=== PATIENT | male | born 1940 | race Caucasian/White ===

== ENCOUNTER → 2018-11-26 | Outpatient (CLI) | payer OTHER, BC, MEDICARE ==
--- NOTE | 2018-11-26 13:08 | MR ---
EXAMINATION TYPE: MR iac wo/w con DATE OF EXAM: 11/26/2018 COMPARISON: None HISTORY: Left side hearing loss TECHNIQUE: Multiplanar, multisequence images of the brain and brainstem with small [id number] high-resolution images through the internal auditory canals is performed without and with IV contrast, utilizing 7.5 mL intravenous Gadavist . FINDINGS: Diffusion weighted images demonstrate no evidence of a recent infarct or other diffusion ab normality. There is no extra-axial fluid collection. There are scattered periventricular and subcor tical focal hyperintensities on inversion recovery and T2-weighted sequences within the white matter. Approximately 10-15 lesions are present. Correlate fissure cysts are noted incidentally The ventricu lar system and cisternal spaces are normal in size and appearance. The brain volume is age appropria te, there is age-related atrophy. There is no cerebellopontine angle mass, internal auditory canals s how no abnormal enhancement. Midline structures demonstrate normal morphology. The craniocervical junction appears within normal limits. Post contrast images demonstrate no abnormal enhancement. The dural venous sinuses appear pa tent. The visualized sinuses are showing some inflammatory change in the left maxillary sinus, there may be mucus retention cyst and the globes are intact. IMPRESSION: Nonspecific white matter demyelination likely related to chronic small vessel ischemia. A ge-related atrophy. Sinus disease. No abnormality evident in the internal auditory canals.
== END | disposition home or self-care (01) ==
LOC: RADMRIMAIN 09:02
PROVIDERS: ATTEND Otolaryngology
DX: H90.42 Sensorineural hearing loss, unilateral, left ear, with unrestricted hearing on the contralateral side (principal)
CPT/HCPCS: 70553; A9585

== ENCOUNTER → 2018-12-18 | Outpatient (CLI) | payer MEDICARE, BC ==
--- NOTE | 2018-12-18 15:18 | US ---
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 MRI in [place] showed renal cyst EXAM MEASUREMENTS: Right Kidney: 10.6 x 4.9 x 4.9 cm Left Kidney: 10.7 x 3.6 x 3.7 cm Right Kidney: lower pole lateral cystic appearing lesion = 1.3 x 1.2 x 1.2 cm with some increased thr ough transmission and no internal complexity. Left Kidney: No hydronephrosis or masses seen Bladder: wnl, moderately distended Bilateral Jets not seen There is no evidence for hydronephrosis at this point in time. No nephrolithiasis is seen. The urina ry bladder is anechoic. Bilateral ureteral jets are not seen. IMPRESSION: Small right renal cyst measuring 1.3 cm appears simple although somewhat difficult to visualize.
== END ==
LOC: RADUSWWP 14:06
PROVIDERS: ATTEND Internal Medicine Geriatric Medicine
DX: N28.1 Cyst of kidney, acquired (principal)
CPT/HCPCS: 76770

== ENCOUNTER 2021-03-23 15:21 | Inpatient (IN) | payer MEDICARE, BC ==
[2021-03-23] MEDS ORDERED: HEPARIN SODIUM 1,000 UN/ML (10ML VL) IV ONE (15:28)
[2021-03-23] MEDS ORDERED: NITROGLYCERIN SL TABS 0.4 MG TAB SUBLINGUAL PRN (15:28)
[2021-03-23 15:37] LABS: Basophils % (A) 1 %; Eosinophils # (A) 0.1 k/uL (0-0.7); Eosinophils % (A) 2 %; HCT 39.7 % (39.0-53.0); HGB 13.1 gm/dL (13.0-17.5); Lymphocytes # (A) 2.1 k/uL (1.0-4.8); Lymphocytes % (A) 29 %; MCH 32.8 pg (25.0-35.0); MCV 99.2 fL (80.0-100.0); Mean Platelet Volume 7.8; Monocytes # (A) 0.5 k/uL (0-1.0); Monocytes % (A) 7 %; Neutrophils # (A) 4.1 k/uL (1.3-7.7); Neutrophils % (A) 58 %; Platelet Count 199 k/uL (150-450); RDW 12.6 % (11.5-15.5); WBC 7.1 k/uL (3.8-10.6)
[2021-03-23] MEDS ORDERED: NALOXONE 0.4 MG/ML 1 ML VIAL IV PRN (15:39)
[2021-03-23] MEDS ORDERED: SODIUM CHLORIDE 0.9% 1,000 ML IV ONE (15:40)
[2021-03-23] MEDS ORDERED: IV FLUID CONTINUATION 950 ML IV ONE (15:40)
--- NOTE | 2021-03-23 15:44 | XR ---
EXAMINATION TYPE: XR chest 1V portable DATE OF EXAM: 03/23/2021 HISTORY: Shortness of breath. COMPARISON: 11/02/2013 TECHNIQUE: Single view of the chest is submitted. FINDINGS: Demonstrated are scattered senescent parenchymal change. There is no evidence for focal infiltrate. The heart is stable. Hilar and mediastinal structures are within normal limits. Degenerative changes are seen of the dorsal spine. IMPRESSION: 1. Chronic changes without evidence for acute pulmonary disease.
[2021-03-23 15:47] LABS: Albumin 3.5 g/dL (3.5-5.0); Calcium 8.9 mg/dL (8.4-10.2); Partial Thromboplastin Time 24.9 sec (22.0-30.0); Potassium 3.9 mmol/L (3.5-5.1); Prothrombin Time 10.8 sec (9.0-12.0); Total Bilirubin 0.5 mg/dL (0.2-1.3); Total Protein 5.8 g/dL (6.3-8.2)
[2021-03-23] MEDS ORDERED: HEPARIN SODIUM 1,000 UN/ML (10ML VL) ONE (15:48)
[2021-03-23] MEDS ORDERED: LIDOCAINE 1% INJ 10MG/ML (20 ML MDV) SQ ONE ×2 (15:50→16:19)
[2021-03-23] MEDS ORDERED: MIDAZOLAM 2 MG/2 ML VIAL IVP ONE (15:51)
[2021-03-23] MEDS ORDERED: fentaNYL (PF) 50 MCG/ML 2 ML AMP ONE (16:20)
[2021-03-23] MEDS: VERAPAMIL SYRINGE (5 MG/10 ML) INTRAARTER ONE ×2 (16:20→17:16)
[2021-03-23] MEDS ORDERED: fentaNYL (PF) 50 MCG/ML 2 ML AMP IVP ONE (16:22)
[2021-03-23] MEDS ORDERED: IOPAMIDOL-370 125ML BTL INJ ONE (16:32)
[2021-03-23] MEDS: HEPARIN SODIUM 1,000 UN/ML (10ML VL) IVP ONE ×2 (16:45→17:28)
[2021-03-23] MEDS ORDERED: CLOPIDOGREL 75 MG TAB ONE (17:21)
[2021-03-23] MEDS ORDERED: IOPAMIDOL-370 100ML BTL INJ ONE (17:28)
[2021-03-23] MEDS ORDERED: CLOPIDOGREL 75 MG TAB PO ONE (17:28)
[2021-03-23] MEDS ORDERED: TIROFIBAN 12.5MG-250ML NS 250 ML IV ONE (17:30)
[2021-03-23 17:53] LABS: Glucose,Whole Blood 115 mg/dL (75-99)
[2021-03-23] MEDS: HEPARIN SOD,PORK IN 0.45% NACL 25,000 UNIT in 0.45% NACL 1 250ML.BAG IV SCH (18:04)
[2021-03-23] MEDS ORDERED: TIROFIBAN 12.5MG-250ML NS 250 ML IV SCH (18:15)
[2021-03-23] MEDS ORDERED: DOCUSATE 100 MG CAP PO PRN (18:20)
[2021-03-23] MEDS ORDERED: ALPRAZolam 0.25 MG TAB PO PRN (18:22)
[2021-03-23] MEDS: SODIUM CHLORIDE 0.9% 1,000 ML IV SCH (18:53)
--- NOTE | 2021-03-23 20:57 | P.CRDCN ---
History of Present Illness Consult date: 03/23/21 Chief complaint: Chest discomfort History of present illness: This is a pleasant 81-year-old gentleman with coronary artery disease and prior coronary artery bypass grafting as well as ischemic cardiomyopathy with the last ejection fraction about 40-45% as well as chronic kidney disease and hypertension and dyslipidemia was brought to the emergency department by ambulance after he was diagnosed with acute inferior ST elevation myocardial inf arction. He was in his usual state of health until earlier today when he started experiencing discomfort in the middle of the chest associated with shortness of breath. The discomfort was radiating to his back. Ambulance was called and the EKG revealed acute inferior ST elevation myocardial infarction. The patient was brought emergently to the cardiac incident commander where he underwent a heart catheterization and that revealed severe triple-vessel coronary artery disease with chronic total occlusion of the left anterior descending artery and left circumflex as well as right coronary artery and patent CAMARA to LAD and occluded the distal anastomosis of the SVG to dominant left circumflex coronary artery. The patient underwent successful balloon angioplasty of the SVG to left circumflex with a very complex and long procedure because of his anatomy where the proximal anastomosis of the SVG is coming from high short ascending aorta. The procedure was performed from the right groin as well as from right radial artery. I was able to balloon angioplasty the distal anastomosis of the graft to the left circumflex without deploying stent with FEMI III flow and without any complication. By the end the patient was chest pain-free with resolving changes. The patient will be admitted to the intensive care unit. He was started on dual antiplatelet therapy and also I started the patient on Agg rostat. An echocardiogram will be scheduled. He will be on anti-ischemic medication and high intensity statin. Past Medical History Past Medical History: Coronary Artery Disease (CAD), Hyperlipidemia, Hypertension, Myocardial Infarction ([place]) Last Myocardial Infarction Date:: 03/23/2021 History of Any Multi-Drug Resistant Organisms: None Reported Past Surgical History: Coronary Bypass/CABG, Heart Catheterization With Stent Additional Past Surgical History / Comment(s): heart bypass x2 (2001), coronary stent Past Anesthesia/Blood Transfusion Reactions: No Reported Reaction Date of Last Stent Placement:: 11/02/13 Past Psychological History: No Psychological Hx Reported Smoking Status: Former smoker Past Alcohol Use History: Occasional Additional Past Alcohol Use History / Comment(s): Occasional glass of red wine. Past Drug Use History: None Reported Medications and Allergies Home Medications Medication Instructions Recorded Confirmed Type ALPRAZolam [Xanax] 0.25 mg PO HS PRN 11/02/13 03/23/21 History Nitroglycerin Sl Tabs [Nitrostat] 0.4 mg SUBLINGUAL Q5M PRN #25 tab 11/04/13 03/23/21 Rx Ascorbic Acid [Vitamin C] 500 mg PO DAILY 03/23/21 03/23/21 History Aspirin EC [Ecotrin Low Dose] 81 mg PO HS 03/23/21 03/23/21 History Melatonin 5 mg PO HS 03/23/21 03/23/21 History Metoprolol Succinate [Toprol XL] 25 mg PO HS 03/23/21 03/23/21 History Multivitamins, Thera [Multivitamin 1 tab PO DAILY 03/23/21 03/23/21 History (formulary)] Rosuvastatin [Crestor] 10 mg PO FR 03/23/21 03/23/21 History lisinopriL [Zestril] 10 mg PO HS 03/23/21 03/23/21 History Allergies Allergy/AdvReac Type Severity Reaction Status Date / Time No Known Allergies Allergy Verified 11/01/13 23:48 Physical Exam Vitals: Vital Signs Temp Pulse Resp BP Pulse Ox 03/23/21 19:01 96 03/23/21 19:00 51 L 11 L 96 03/23/21 18:50 97.9 F 47 L 16 101/61 95 03/23/21 15:23 97.4 F L 93 20 118/74 97 Intake and Output 03/23/21 03/23/21 03/23/21 06:59 14:59 22:59 Intake Total 953 Output Total 250 Balance 703 Intake: IV 953 Sodium Chloride 0.9% 1, 150 000 ml @ 75 mls/hr IV . [id number] [facility] Rx#:[id number] Output: Urine 250 Other: # Voids 1 Weight 82.8 kg ABP, PAP, CO, CI - Last 8 Hours Arterial Blood Pressure 121/52 Arterial Blood Pressure 118/49 - Constitutional General appearance: no acute distress Results 03/23/21 15:25 03/23/21 15:25 Cardiac Enzymes 03/23/21 03/23/21 Range/Units 15:25 15:25 AST 29 (17-59) U/L Troponin I <0.012 (0.000-0.034) ng/mL Coagulation 03/23/21 Range/Units 15:25 PT 10.8 (9.0-12.0) sec APTT 24.9 (22.0-30.0) sec CBC 03/23/21 Range/Units 15:25 WBC 7.1 (3.8-10.6) k/uL RBC 4.00 L (4.30-5.90) m/uL Hgb 13.1 (13.0-17.5) gm/dL Hct 39.7 (39.0-53.0) % Plt Count 199 (150-450) k/uL Comprehensive Metabolic Panel 03/23/21 Range/Units 15:25 Sodium 131 L (137-145) mmol/L Potassium 3.9 (3.5-5.1) mmol/L Chloride 103 (98-107) mmol/L Carbon Dioxide 21 L (22-30) mmol/L BUN 24 H (9-20) mg/dL Creatinine 1.17 (0.66-1.25) mg/dL Glucose 164 H (74-99) mg/dL Calcium 8.9 (8.4-10.2) mg/dL AST 29 (17-59) U/L ALT 19 (4-49) U/L Alkaline Phosphatase 48 (38-126) U/L Total Protein 5.8 L (6.3-8.2) g/dL Albumin 3.5 (3.5-5.0) g/dL Current Medications Generic Name Dose Route Start Last Admin Trade Name Freq PRN Reason Stop Dose Admin Alprazolam 0.25 mg 03/23/21 18:22 Alprazolam 0.25 Mg Tab PO HS PRN Anxiety Ascorbic Acid 500 mg 03/24/21 09:00 Ascorbic Acid 500 Mg Tab PO DAILY [facility] Clopidogrel Bisulfate 75 mg 03/24/21 09:00 Clopidogrel 75 Mg Tab PO DAILY [facility] Docusate Sodium 100 mg 03/23/21 18:20 Docusate 100 Mg Cap PO DAILY PRN Constipation Heparin Sodium/Sodium Chloride 250 mls @ 10 mls/hr 03/23/21 15:30 03/23/21 18:04 25,000 unit/ Sodium Chloride IV Not Given .Q24H [facility] Protocol 11.683 UNITS/KG/HR Tirofiban/Sodium Chloride 250 mls @ 7.452 mls/hr 03/23/21 18:15 03/23/21 18:54 Aggrastat 12.5 Mg/250 Ml Ns IV 7.452 mls/hr .Q24H [facility] Administration 0.075 MCG/KG/MIN Sodium Chloride 1,000 mls @ 75 mls/hr 03/23/21 18:15 03/23/21 18:53 Saline 0.9% IV 75 mls/hr .[id number] [facility] Administration Lisinopril 10 mg 03/23/21 21:00 Lisinopril 10 Mg Tab PO HS [facility] Melatonin 5 mg 03/23/21 21:00 Melatonin 5 Mg Tablet PO HS [facility] Multivitamins 1 each 03/24/21 09:00 Multivitamins, Thera 1 Each Tab PO DAILY [facility] Naloxone HCl 0.2 mg 03/23/21 15:39 Naloxone 0.4 Mg/Ml 1 Ml Vial IV Q2M PRN Opioid Reversal Intake and Output 03/23/21 03/23/21 03/23/21 06:59 14:59 22:59 Intake Total 953 Output Total 250 Balance 703 Intake: IV 953 Sodium Chloride 0.9% 1, 150 000 ml @ 75 mls/hr IV . [id number] [facility] Rx#:[id number] Output: Urine 250 Other: # Voids 1 Weight 82.8 kg Patient Weight 03/24/21 06:59 Weight 82.8 kg 03/23/21 15:25 03/23/21 15:25 Assessment and Plan Assessment: Assessment 1. Acute inferior ST elevation myocardial infarction 2. Status post PCI of the SVG to LCx 3. Severe triple-vessel coronary artery disease 4. Nonischemic cardiomyopathy 5. Hypertension 6. Severe dyslipidemia Plan 1. Dual antiplatelet therapy 2. Start the patient on IIb/IIIa inhibitor using Aggrostat 3. High intensity statin 4. Anti-ischemic medication 5. Obtain an echocardiogram with Doppler 6. Follow-up with the patient
[2021-03-23] MEDS: MELATONIN 5 MG TABLET PO SCH (22:12)
[2021-03-23] MEDS: lisinopriL 10 MG TAB PO SCH (22:12)
--- NOTE | 2021-03-23 23:20 | CC ---
CARDIAC CATHETERIZATION REPORT DATE OF PROCEDURE: 03/23/2021 PERFORMING PHYSICIAN: Gregg Gonzalez M.D. PROCEDURE PERFORMED: 1. Selective left and right coronary angiogram. 2. CAMARA to LAD angiogram. 3. SVG to left circumflex angiogram. 4. Successful angioplasty of the SVG to the left circumflex using a 2.0 x 12 mm balloon with an excellent angiographic result and reduction of stenosis from 100% to 0%. 5. Right common femoral artery angiogram. INDICATION: Mr. Shaw is a pleasant 81-year-old gentleman with coronary artery disease and prior coronary artery bypass grafting with the last heart catheterization in 2013 that showed severe triple-vessel coronary artery disease with patent CAMARA to LAD, and at that point he underwent PCI of the SVG to left circumflex as well as ischemic cardiomyopathy with known EF between 40% and 45% as well as hypertension and dyslipidemia and chronic kidney disease. He was brought to the hospital by ambulance after he was diagnosed with acute inferior ST-elevation myocardial infarction. APPROACH: 1. Right common femoral artery. 2. Right radial artery. COMPLICATIONS: None. LEVEL OF SEDATION: Moderate, with a sedation length of 66 minutes. PROCEDURE DESCRIPTION: After obtaining informed consent, the patient was brought to the cardiac lab tech. The right common femoral artery was cannulated using micropuncture technique under ultrasound guidance. The micropuncture wire passed easily. Then I placed a 6-American sheath 11 cm at the right common femoral artery. I did selective left coronary angiogram using JL4.5 catheter, which was a diagnostic catheter. Selective right coronary angiogram was performed using the JR4 catheter. CAMARA to LAD angiogram was performed using JR4 catheter. The SVG to left circumflex angiogram was attempted to be cannulated using JR4 catheter and that was unsuccessful. LCB catheter was unsuccessful. An AL1 catheter was unsuccessful. An AL2 catheter was unsuccessful. An EBU catheter was unsuccessful. Multipurpose catheter was unsuccessful. Finally I was able to cannulate that graft and intervene on it using a diagnostic AL1 catheter. Please see separate paragraph for that. Please note that during the procedure and because I had difficulty engaging the graft from the right common femoral artery, I accessed the right radial artery and I placed a 6-American sheath and I attempted engaging the graft, which is the SVG to the circumflex, using the same catheter I used from the groin, and that was unsuccessful. SELECTIVE CORONARY ANGIOGRAM: 1. The left main appeared to be calcified with mild disease only. It bifurcates into LCX and LAD. 2. The LCX is 100% occluded in the proximal portion. 3. The LAD is subtotally occluded in the mid portion with competitive flow seen from the CAMARA. 4. The right coronary artery is chronically occluded in the mid portion. ANGIOGRAM OF CORONARY BYPASSES: 1. The CAMARA to LAD is patent. The LAD distal to the anastomosis has a 50% tubular lesion. 2. The SVG to left circumflex is occluded distally. Also the same graft has an ostial lesion that appeared to be in the range of 50% to 60%. PCI OF THE SVG TO LEFT CIRCUMFLEX: Anticoagulation was initiated and continued using heparin with continuous ACT monitoring throughout the procedure. After attempting to engage the graft using multiple catheters, as described above, finally I was able to engage the graft using an AL1 diagnostic catheter. I did an angiogram of the graft, which showed that the distal portion was occluded. I did wire it using a Whisper wire. Balloon angioplasty was achieved through the diagnostic catheter using a 2.0 x 12 mm balloon with multiple PTCA ballooning. The following angiogram after the plain balloon angioplasty showed excellent angiographic results. At that point and in view of the asymptomatic status, the resulting EKG changes, and the maximal amount of contrast which was almost reached, I decided to stop. The procedure was completed without any complication. CONCLUSION: 1. Severe triple-vessel coronary artery disease. 2. Patent CAMARA to LAD. The LAD distal to CAMARA anastomosis has about 50% tubular lesion. 3. Occluded distal SVG to left circumflex. Balloon angioplasty was performed and was successful without deploying stent. The procedure was extremely complex because of the patient's anatomy. 4. Chronic total occlusion of the right coronary artery which is known from before. POSTPROCEDURE MANAGEMENT: 1. Dual anti-platelet therapy with aspirin as well as clopidogrel. 2. Start the patient on inhibitor with Aggrastat to be continuous for 12 hours. 3. Anti-ischemic medication. 4. High-intensity statin. 5. ICU admission. 6. Standard groin care. MMODL / IJN: [id number] /
--- NOTE | 2021-03-23 23:28 | LTR ---
March 23, 2021 To: Dr. Aden Re: Azalia Shaw (44) Dear Dr. Aden, Mr. Azalia Shaw was brought to the emergency department by ambulance after he was diagnosed with acute inferior ST-elevation myocardial infarction. He underwent successful angioplasty of the SVG to the circumflex with good angiographic results and without any complication from right groin approach and right radial approach. I want to thank you for allowing me to participate in this patient's care. Please do not hesitate to call with any questions or concerns. Sincerely, Gregg Gonzalez M.D. AUDREY / MINI: [id number] /
--- NOTE | 2021-03-23 23:35 | ED ---
General Adult HPI - General Chief complaint: Chest Pain Stated complaint: stemi Source: patient, RN notes reviewed, old records reviewed Mode of arrival: EMS Limitations: no limitations - History of Present Illness Initial comments: Patient is a 81-year-old male with past medical history remarkable for coronary bypass surgery as well as multiple coronary stents not currently on blood thinners presents from his apartment complaining of chest pain of 2-3 hour duration. EMS transferred the patient's EKG over prior to arrival, and it showed ST segment elevations in leads 2, 3, aVF with reciprocal changes in I and aVL. This is concerning for a inferior posterior NC. clinical laboratory service teacher and STEMI pager were activated prior to arrival. Patient has been having the chest pain that is substernal and is located over the bilateral chest with radiation towards his neck. He denies any dyspnea. Denies any nausea, vomiting. Patient received aspirin from EMS. Denies any headache, lightheadedness, weakness. His no other acute platelets this time. Denies any fevers, chills, sick contacts. Discuss pain as pressure sensation that has been unrelenting for the last few hours. It did improve somewhat with nitro tablets. Patient presents over concern for acute ST segment elevation myocardial infarction. - Related Data Home Medications Medication Instructions Recorded Confirmed ALPRAZolam [Xanax] 0.25 mg PO HS PRN 11/02/13 03/23/21 Ascorbic Acid [Vitamin C] 500 mg PO DAILY 03/23/21 03/23/21 Aspirin EC [Ecotrin Low Dose] 81 mg PO HS 03/23/21 03/23/21 Melatonin 5 mg PO HS 03/23/21 03/23/21 Metoprolol Succinate [Toprol XL] 25 mg PO HS 03/23/21 03/23/21 Multivitamins, Thera [Multivitamin 1 tab PO DAILY 03/23/21 03/23/21 (formulary)] Rosuvastatin [Crestor] 10 mg PO FR 03/23/21 03/23/21 lisinopriL [Zestril] 10 mg PO HS 03/23/21 03/23/21 Previous Rx's Medication Instructions Recorded Nitroglycerin Sl Tabs [Nitrostat] 0.4 mg SUBLINGUAL Q5M PRN #25 tab 11/04/13 Allergies Allergy/AdvReac Type Severity Reaction Status Date / Time No Known Allergies Allergy Verified 11/01/13 23:48 Review of Systems ROS Statement: Those systems with pertinent positive or pertinent negative responses have been documented in the HPI. Review of Systems: CONST: Denies fever EYES: Denies blurry vision ENT: Denies nasal congestion C/V: Endorses chest pain RESP: Denies shortness of breath GI: Denies abdominal pain : Denies dysuria SKIN: Denies rash. MSK: Denies joint pain. NEURO: Denies headache ROS Other: All systems not noted in ROS Statement are negative. Past Medical History Past Medical History: Coronary Artery Disease (CAD), Hyperlipidemia, Hypertension, Myocardial Infarction (NC) Last Myocardial Infarction Date:: 03/23/2021 History of Any Multi-Drug Resistant Organisms: None Reported Past Surgical History: Coronary Bypass/CABG, Heart Catheterization With Stent Additional Past Surgical History / Comment(s): heart bypass x2 (2001), coronary stent Past Anesthesia/Blood Transfusion Reactions: No Reported Reaction Date of Last Stent Placement:: 11/02/13 Past Psychological History: No Psychological Hx Reported Smoking Status: Former smoker Past Alcohol Use History: Occasional Additional Past Alcohol Use History / Comment(s): Occasional glass of red wine. Past Drug Use History: None Reported General Exam - General Exam Comments Initial Comments: General: Appears in no acute distress. HEAD: Normal with no signs of head trauma. EYES: PERRLA, EOMI, conjunctiva normal, no discharge. Pupils are 3 mm and equal bilaterally. ENT: Hearing grossly intact, normal oropharynx. RESPIRATORY: Clear breath sounds bilaterally. No wheezes, rales, or rhonchi. C/V: Regular rate and rhythm. S1 and S2 auscultated, no edema, peripheral pulses 2+ and intact throughout ABD: Abd is soft, nontender, nondistended EXT: Normal range of motion, no obvious deformity SKIN: No rashes or lesions observed on exposed skin. NEURO: Alert and oriented 4. No focal deficits. 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 Therefore STEMI pager was immediately activated. We will obtain cardiac laboratory studies, repeat EKG, 1 view chest x-ray. Heparin was ordered for the patient. Patient already received aspirin from EMS. His pain is currently controlled at this time. He'll be connected to continuous cardiac monitoring. I spoke with the on-call strategic alliances manager, who accepted the patient for heart catheterization. Patient was initially stabilized in the emergency department and then transferred to the calibration laboratory technician for immediate cardiac cath. Patient's EKG showed a STEMI in the inferior posterior distribution. Chest x- ray revealed no acute cardio pulmonary process. Laboratory studies returned after the patient already left the department remarkable for mild hyponatremia of 131, negative troponin. I contacted the admitting physician, Dr. Aden who accepted the patient. Patient will be admitted to the ICU and serous condition following cardiac catheterization. - Lab Data Result diagrams: 03/23/21 15:25 03/23/21 15:25 Lab Results 03/23/21 03/23/21 03/23/21 Range/Units 15:25 15:25 15:25 WBC 7.1 (3.8-10.6) k/uL RBC 4.00 L (4.30-5.90) m/uL Hgb 13.1 (13.0-17.5) gm/dL Hct 39.7 (39.0-53.0) % MCV 99.2 (80.0-100.0) fL MCH 32.8 (25.0-35.0) pg MCHC 33.0 (31.0-37.0) g/dL RDW 12.6 (11.5-15.5) % Plt Count 199 (150-450) k/uL MPV 7.8 Neutrophils % 58 % Lymphocytes % 29 % Monocytes % 7 % Eosinophils % 2 % Basophils % 1 % Neutrophils # 4.1 (1.3-7.7) k/uL Lymphocytes # 2.1 (1.0-4.8) k/uL Monocytes # 0.5 (0-1.0) k/uL Eosinophils # 0.1 (0-0.7) k/uL Basophils # 0.0 (0-0.2) k/uL PT 10.8 (9.0-12.0) sec INR 1.0 (<1.2) APTT 24.9 (22.0-30.0) sec Sodium 131 L (137-145) mmol/L Potassium 3.9 (3.5-5.1) mmol/L Chloride 103 (98-107) mmol/L Carbon Dioxide 21 L (22-30) mmol/L Anion Gap 7 mmol/L BUN 24 H (9-20) mg/dL Creatinine 1.17 (0.66-1.25) mg/dL Est GFR (CKD-EPI)AfAm 68 (>60 ml/min/1.73 sqM) Est GFR (CKD-EPI)NonAf 59 (>60 ml/min/1.73 sqM) Glucose 164 H (74-99) mg/dL Calcium 8.9 (8.4-10.2) mg/dL Total Bilirubin 0.5 (0.2-1.3) mg/dL AST 29 (17-59) U/L ALT 19 (4-49) U/L Alkaline Phosphatase 48 (38-126) U/L Troponin I (0.000-0.034) ng/mL Total Protein 5.8 L (6.3-8.2) g/dL Albumin 3.5 (3.5-5.0) g/dL 03/23/21 Range/Units 15:25 WBC (3.8-10.6) k/uL RBC (4.30-5.90) m/uL Hgb (13.0-17.5) gm/dL Hct (39.0-53.0) % MCV (80.0-100.0) fL MCH (25.0-35.0) pg MCHC (31.0-37.0) g/dL RDW (11.5-15.5) % Plt Count (150-450) k/uL MPV Neutrophils % % Lymphocytes % % Monocytes % % Eosinophils % % Basophils % % Neutrophils # (1.3-7.7) k/uL Lymphocytes # (1.0-4.8) k/uL Monocytes # (0-1.0) k/uL Eosinophils # (0-0.7) k/uL Basophils # (0-0.2) k/uL PT (9.0-12.0) sec INR (<1.2) APTT (22.0-30.0) sec Sodium (137-145) mmol/L Potassium (3.5-5.1) mmol/L Chloride (98-107) mmol/L Carbon Dioxide (22-30) mmol/L Anion Gap mmol/L BUN (9-20) mg/dL Creatinine (0.66-1.25) mg/dL Est GFR (CKD-EPI)AfAm (>60 ml/min/1.73 sqM) Est GFR (CKD-EPI)NonAf (>60 ml/min/1.73 sqM) Glucose (74-99) mg/dL Calcium (8.4-10.2) mg/dL Total Bilirubin (0.2-1.3) mg/dL AST (17-59) U/L ALT (4-49) U/L Alkaline Phosphatase (38-126) U/L Troponin I <0.012 (0.000-0.034) ng/mL Total Protein (6.3-8.2) g/dL Albumin (3.5-5.0) g/dL - EKG Data -: EKG Interpreted by Me EKG Comments: 12-lead Electrocardiogram Interpretation Note EKG was reviewed and interpreted by myself. 12-lead ECG performed at 1527 is interpreted by me as revealing normal sinus rhythm at a rate of 93 beats per minute. [place] is normal. [place] interval is 170 ms, QRS duration is 90 ms, QTc is [address] segment elevations in leads 2, 3, aVF with depressions in aVL and 1 which is seen in his EKG from pre-arrival.. R wave progression across the precordium was satisfactory. By my interpretation, this EKG is concerning for acute ischemia in the posterior inferior distribution.. Critical Care Time Critical Care Time: Yes Total Critical Care Time: 30 Critical Care Time: Upon my evaluation, this patient had a high probability of imminent or life- threatening deterioration due to acute STEMI, which required my direct attention, intervention, and personal management. I have personally provided 30 minutes of critical care time exclusive of time spent on separately billable procedures. Time includes review of laboratory data, radiology results, discussion with consultants, and monitoring for potential decompensation. Interventions were performed as documented in my note. Disposition Clinical Impression: ST elevation myocardial infarction (STEMI), Chest pain, CAD (coronary artery disease) Disposition: ADMITTED IP TO THIS [facility] Condition: Serious
[2021-03-24] MEDS: SODIUM CHLORIDE 0.9% 1,000 ML IV SCH ×2 (00:30→05:36)
--- NOTE | 2021-03-24 09:13 | P.HPIM ---
History of Present Illness H&P Date: 03/24/21 History of present illness: This is a 77-year-old patient of Dr. Mccrary with a past medical history significant for coronary bypass surgery with multiple coronary stents, coronary artery disease, hyperlipidemia, hypertension, ischemic cardiomyopathy with a EF of 40-45%, chronic kidney disease stage III and TX. Patient is a former smoker. He is not currently on any blood thinners. He was at home when he started to have chest pain for 2-3 hours in duration. Patient called EMS where he was found to have ST elevation in leads 23 aVF with reciprocal changes to 1 and aVL. Patient states that the pain was radiating across his chest and down both arms. Patient denied any dyspnea. Denies any nausea or vomiting. Denies headache lightheadedness or weakness. Patient was having a pressure sensation unrelenting for multiple hours prior to calling EMS. He did take an aspirin at home and more aspirin with EMS and 3 nitros. Patient had relief after the nitros. He was taken to the cardiac Vp Analysis where a PTCA was preformed to the SVG to the left circumflex. Due to patient's anatomy was unable to place a stent. Review Of Systems: Constitutional: No fever, no chills, no night sweats. No weight change. No weakness, fatigue or lethargy. No daytime sleepiness. EENT: No headache. No blurred vision or double vision, no loss of vision. No loss of Hearing, no ringing in the ears, no dizziness. No nasal drainage or congestion. No epistaxis. No sore throat. Lungs: No shortness of breath, cough, no sputum production. No wheezing. Cardiovascular: No chest pain, no lower extremity edema. No palpitations. No paroxysmal nocturnal dyspnea. No orthopnea. No lightheadedness or dizziness. No syncopal episodes. Abdominal: no abdominal discomfort. No nausea, vomiting. no diarrhea. No constipation. No bloody or tarry stools. no loss of appetite. Genitourinary: No dysuria, increased frequency, urgency. No urinary retention. Musculoskeletal: No myalgias. No muscle weakness, no gait dysfunction, no frequent falls. No back pain. No neck pain. Integumentary: No wounds, no lesions. No rash or pruritus. No unusual brui sing. No change in hair or nails. Neurologic: No aphasia. No facial droop. No change in mentation. No head injury. No headache. No paralysis. No paresthesia. Psychiatric: No depression. No anxiety. No mood swings. Endocrine: No abnormal blood sugars. No weight change. No excessive sweating or thirst. Social history: Patient is and lives with his , he is retired, he does golf regularly. He drinks one glass of red wine occasionally, is a former smoker q uit in . Family history: Patient has 4 children 2 boys and 2 girls his one daughter has endometriosis, all other children are healthy. He is a only child. His mother and father both had heart issues and are . Father also had prostate cancer in his 40s. Physical examination General Appearance: Alert, cooperative, no distress, appears stated age. Neck HEENT: Supple, no lymphadenopathy, no thyroid enlargement, no carotid bruits. Lungs: Clear to auscultation without crackles or wheezes no rhonchi, no deformity. Chest Wall: Chest wall normal expansion with deep inspiration no tenderness and no deformity was found on exam, no costochondral pain or discomfort. Heart: Regular rate and rhythm, S1, S2 normal, no murmur, rub or gallop. Back: Symmetric, no curvature, ROM normal, no CVA tenderness. Abdomen: Soft, non-tender, no rebound or rigidity, no hepatosplenomegaly. Extremities: Extremities normal, atraumatic, no cyanosis or edema. Pulses: 2+ and symmetric. Skin: Skin color, texture, tugor normal, no rashes or lesions. Neurologic: Alert oriented x3 cranial nerves II through XII intact, no motor deficit, no abnormal balance or gait Assessment and plan 1. Chest pain with acute inferior ST elevation myocardial infarction status post PCI of SVG to the left circumflex. Cardiology consult appreciated, continue Plavix, Aggrastat. 2. Ischemic cardiomyopathy with severe triple-vessel disease status post CABG 2001 as noted above 3. Hypertension. Continue lisinopril 10 mg by mouth at bedtime metoprolol 25 mg by mouth at bedtime 4. Hyperlipidemia. Atorvastatin 40 mg by mouth at bedtime, 5. Chronic kidney disease. Monitor kidney function, continue hydration 6. Constipation continue Colace 100 mg by mouth daily as needed 7. Insomnia continue melatonin 5 mg by mouth at bedtime 8. GI prophylaxis. Protonix 9. DVT prophylaxis. Plavix, Aggrastat at this time Discharge plan: More than likely home Impression and plan of care have been directed as dictated by the signing oneyda Zheng nurse practitioner acting as scribe for signing physician. Past Medical History Past Medical History: Coronary Artery Disease (CAD), Hyperlipidemia, Hypertension, Myocardial Infarction (TX) Last Myocardial Infarction Date:: 03/23/2021 History of Any Multi-Drug Resistant Organisms: None Reported Past Surgical History: Coronary Bypass/CABG, Heart Catheterization With Stent Additional Past Surgical History / Comment(s): heart bypass x2 (2001), coronary stent Past Anesthesia/Blood Transfusion Reactions: No Reported Reaction Date of Last Stent Placement:: 11/02/13 Past Psychological History: No Psychological Hx Reported Smoking Status: Former smoker Past Alcohol Use History: Occasional Additional Past Alcohol Use History / Comment(s): Occasional glass of red wine. Past Drug Use History: None Reported Medications and Allergies Home Medications Medication Instructions Recorded Confirmed Type ALPRAZolam [Xanax] 0.25 mg PO HS PRN 11/02/13 03/23/21 History Nitroglycerin Sl Tabs [Nitrostat] 0.4 mg SUBLINGUAL Q5M PRN #25 tab 11/04/13 03/23/21 Rx Ascorbic Acid [Vitamin C] 500 mg PO DAILY 03/23/21 03/23/21 History Aspirin EC [Ecotrin Low Dose] 81 mg PO HS 03/23/21 03/23/21 History Melatonin 5 mg PO HS 03/23/21 03/23/21 History Metoprolol Succinate [Toprol XL] 25 mg PO HS 03/23/21 03/23/21 History Multivitamins, Thera [Multivitamin 1 tab PO DAILY 03/23/21 03/23/21 History (formulary)] Rosuvastatin [Crestor] 10 mg PO FR 03/23/21 03/23/21 History lisinopriL [Zestril] 10 mg PO HS 03/23/21 03/23/21 History Allergies Allergy/AdvReac Type Severity Reaction Status Date / Time No Known Allergies Allergy Verified 11/01/13 23:48 Physical Exam Vitals: Vital Signs Temp Pulse Resp BP Pulse Ox 03/24/21 07:00 71 24 139/71 96 03/24/21 06:30 58 L 14 128/76 95 03/24/21 06:00 54 L 16 149/78 96 03/24/21 05:30 70 15 131/71 96 03/24/21 05:00 53 L 20 138/80 95 03/24/21 04:30 56 L 15 126/76 95 03/24/21 04:00 99 F 58 L 12 126/83 95 03/24/21 03:30 52 L 14 125/69 97 03/24/21 03:00 53 L 18 140/77 95 03/24/21 02:30 54 L 19 126/65 94 L 03/24/21 02:00 56 L 16 130/73 95 03/24/21 01:30 53 L 14 132/80 97 03/24/21 01:00 54 L 14 129/74 93 L 03/24/21 00:30 52 L 12 135/85 95 03/24/21 00:00 98.5 F 50 L 15 139/75 95 03/23/21 23:30 51 L 14 125/72 97 03/23/21 23:00 50 L 15 114/71 96 03/23/21 22:30 50 L 13 108/70 93 L 03/23/21 22:00 48 L 16 120/70 96 03/23/21 21:30 49 L 15 124/66 96 03/23/21 21:16 50 L 19 122/66 96 03/23/21 21:14 49 L 16 122/68 97 03/23/21 21:12 51 L 15 126/78 96 03/23/21 21:10 52 L 13 120/70 95 03/23/21 21:08 48 L 19 119/75 97 03/23/21 21:06 56 L 13 130/83 95 03/23/21 21:04 52 L 18 126/77 96 03/23/21 21:02 55 L 18 124/77 96 03/23/21 21:00 53 L 18 126/68 96 03/23/21 20:58 54 L 18 128/84 96 03/23/21 20:00 97.9 F 59 L 15 93 L 03/23/21 19:01 96 03/23/21 19:00 51 L 11 L 96 03/23/21 18:50 97.9 F 47 L 16 101/61 95 03/23/21 15:23 97.4 F L 93 20 118/74 97 Intake and Output 03/23/21 03/24/21 03/24/21 22:59 06:59 14:59 Intake Total 1200.35 659.60 82.45 Output Total 700 750 Balance 500.35 -90.40 82.45 Intake: IV 1200.35 659.60 82.45 Sodium Chloride 0.9% 1, 375 600 75 000 ml @ 75 mls/hr IV . [id number] [facility] Rx#:[id number] Tirofiban 12.5MG-250Ml Ns 22.35 59.60 7.45 250 ml @ 0.075 MCG/KG/ MIN 7.452 mls/hr IV .Q24H [facility] Rx#:[id number] Output: Urine 700 750 Other: Voiding Method Urinal # Voids 1 Weight 82.8 kg 82.6 kg Results CBC & Chem 7: 03/23/21 15:25 03/23/21 15:25 Labs: Abnormal Lab Results - Last 24 Hours (Table) 03/23/21 03/23/21 03/23/21 Range/Units 15:25 15:25 17:52 RBC 4.00 L (4.30-5.90) m/uL Sodium 131 L (137-145) mmol/L Carbon Dioxide 21 L (22-30) mmol/L BUN 24 H (9-20) mg/dL Glucose 164 H (74-99) mg/dL POC Glucose (mg/dL) 115 H (75-99) mg/dL Total Protein 5.8 L (6.3-8.2) g/dL Thrombosis Risk Factor Assmnt - Choose All That Apply Any of the Below Risk Factors Present?: Yes Each Factor Represents 1 point: Acute [place], Minor surgery planned, Obesity (BMI >25) Other Risk Factors: Yes Each Risk Factor Represents 2 Points: Patient confined to bed Each Risk Factor Represents 3 Points: Age 75 years or older Other congenital or acquired thrombophilia - If yes, enter type in comment: No Thrombosis Risk Factor Assessment Total Risk Factor Score: 8 Thrombosis Risk Factor Assessment Level: High Risk
[2021-03-24] MEDS: MULTIVITAMINS, THERA 1 EACH TAB PO SCH (09:14)
[2021-03-24] MEDS: ASCORBIC ACID 500 MG TAB PO SCH (09:14)
[2021-03-24] MEDS: CLOPIDOGREL 75 MG TAB PO SCH (09:14)
[2021-03-24 11:42] LABS: Basophils % (A) 1 %; Eosinophils # (A) 0.1 k/uL (0-0.7); Eosinophils % (A) 1 %; HCT 40.3 % (39.0-53.0); Lymphocytes # (A) 1.3 k/uL (1.0-4.8); Lymphocytes % (A) 17 %; MCH 34.8 pg (25.0-35.0); MCHC 34.8 g/dL (31.0-37.0); MCV 100.1 fL (80.0-100.0); Mean Platelet Volume 8.2; Monocytes # (A) 0.4 k/uL (0-1.0); Monocytes % (A) 6 %; Neutrophils # (A) 5.3 k/uL (1.3-7.7); Neutrophils % (A) 72 %; Platelet Count 227 k/uL (150-450); RBC 4.02 m/uL (4.30-5.90); RDW 13.4 % (11.5-15.5); WBC 7.3 k/uL (3.8-10.6)
[2021-03-24 11:47] LABS: Calcium 8.8 mg/dL (8.4-10.2); Potassium 4.6 mmol/L (3.5-5.1)
--- NOTE | 2021-03-24 16:44 | P.PN ---
Subjective Progress Note Date: 03/24/21 This patient with history of ischemic heart disease with previous bypass surgery and also previous stent placement of the vein graft to circumflex, present to the hospital with complaints of chest pain and EKG evidence of inferior wall myocardial infarction. Patient was taken to physical laboratory assistant and had catheterization and also angioplasty of the vein graft to circumflex by Dr. Lowe. Apparently stent could not be placed. Patient did well on this seemed to feeling good today. Denies any chest pain or shortness of breath. The right radial puncture site and also the right femoral site appears to be healing well without any hematoma. Patient denies any chest pain or shortness of breath. His echo [place] showed almost preserved LV function with mild hypokinesis of the inferior wall. Patient is maintaining sinus rhythm. We'll continue current medical therapy and increase activity. May transfer to telemetry unit. Within next 24 hours. Possible discharge within next 24-48 hours Objective - Vital Signs Vital signs: Vital Signs Temp 98.1 F 03/24/21 08:00 Pulse 58 L 03/24/21 09:00 Resp 16 03/24/21 09:00 BP 149/83 03/24/21 09:00 Pulse Ox 95 03/24/21 09:00 Intake & Output 03/23/21 03/24/21 03/24/21 18:59 06:59 18:59 Intake Total 878 981.95 329.80 Output Total 250 1200 200 Balance 628 -218.05 129.80 Weight 82.8 kg 82.6 kg Intake: IV 878 981.95 329.80 Sodium Chloride 0.9% 1, 75 900 300 000 ml @ 75 mls/hr IV . [id number] [facility] Rx#:[id number] Tirofiban 12.5MG-250Ml Ns 81.95 29.80 250 ml @ 0.075 MCG/KG/ MIN 7.452 mls/hr IV .Q24H [facility] Rx#:[id number] Output: Urine 250 1200 200 Other: Voiding Method Urinal # Voids 1 1 # Bowel Movements 1 ABP, PAP, CO, CI - Last Documented Arterial Blood Pressure 118/48 - Exam GENERAL EXAM: Patient is alert and oriented and doesn't appear to be in any acute distress HEENT: Normocephalic. Normal reaction of pupils, equal size, normal range of extraocular motion. No erythema or exudates in the throat. NECK: No masses, no nuchal rigidity. CHEST: No chest wall deformity. LUNGS: Equal air entry with no crackles or wheeze. HEART: S1 and S2 normal with no audible mumurs or gallops. Regular rhythm, femorals equal on both sides.. ABDOMEN: No hepatosplenomegaly, normal bowel sounds, no guarding or rigidity. SKIN: No rashes CENTRAL NERVOUS SYSTEM: No focal deficits. EXTREMITIES: No cyanosis, clubbing or edema. - Labs CBC & Chem 7: 03/24/21 11:08 03/24/21 11:08 Labs: Abnormal Lab Results - Last 24 Hours (Table) 03/23/21 03/24/21 03/24/21 Range/Units 17:52 11:08 11:08 RBC 4.02 L (4.30-5.90) m/uL MCV 100.1 H (80.0-100.0) fL Sodium 136 L (137-145) mmol/L Chloride 108 H (98-107) mmol/L Carbon Dioxide 19 L (22-30) mmol/L Glucose 155 H (74-99) mg/dL POC Glucose (mg/dL) 115 H (75-99) mg/dL Assessment and Plan (1) CAD (coronary artery disease) Current Visit: Yes Status: Acute Code(s): I25.10 - ATHSCL HEART DISEASE OF [place] CORONARY ARTERY W/O ANG PCTRS SNOMED Code(s): 674190399 (2) ST elevation myocardial infarction (STEMI) Current Visit: Yes Status: Acute Code(s): I21.3 - ST ELEVATION (STEMI) MYOCARDIAL INFARCTION OF [facility] SITE SNOMED Code(s): 34723680 (3) HTN (hypertension) Current Visit: No Status: Acute Code(s): I10 - ESSENTIAL (PRIMARY) HYPERTENSION SNOMED Code(s): 81946611 (4) Hx of CABG Current Visit: No Status: Acute Code(s): Z95.1 - PRESENCE OF AORTOCORONARY BYPASS GRAFT SNOMED Code(s): 459660478 (5) Hyperlipemia Current Visit: No Status: Acute Code(s): E78.5 - HYPERLIPIDEMIA, UNSPECIFIED SNOMED Code(s): 25057371 Plan: Patient is critically stable. His heart rate is slightly slow. Will cut back the dose of the Toprol-XL to 12.5 mg patient is intolerant of statins. It appears that patient may be getting Repatha injections. We'll get the blood work including lipid panel
[2021-03-24] MEDS: HEPARIN SOD,PORK IN 0.45% NACL 25,000 UNIT in 0.45% NACL 1 250ML.BAG IV SCH (16:50)
--- NOTE | 2021-03-24 16:59 | ECHOF ---
Referral Reason:stemi MEASUREMENTS -------- HEIGHT: 172.7 cm WEIGHT: 82.6 kg BP: RVIDd: 2.4 cm (< 3.3) IVSd: 0.7 cm (0.6 - 1.1) LVIDd: 3.7 cm (3.9 - 5.3) LVPWd: 1.1 cm (0.6 - 1.1) IVSs: 1.3 cm LVIDs: 2.6 cm LVPWs: 1.2 cm Ao Diam: 3.3 cm (2.0 - 3.7) AV Cusp: 1.7 cm (1.5 - 2.6) LA Diam: 3.1 cm (2.7 - 3.8) MV EXCURSION: 9.718 mm (> 18.000) MV EF SLOPE: 55 mm/s (70 - 150) EPSS: 2.0 cm MV E Ryan: 0.61 m/s MV DecT: 164 ms MV A Ryan: 0.72 m/s MV E/A Ratio: 0.85 RAP: 5.00 mmHg RVSP: 12.60 mmHg FINDINGS -------- This was a technically difficult study with suboptimal views. The left ventricular size is normal. Left ventricular wall thickness is normal. Overall left vent ricular systolic function is low-normal with, an EF between 50 - 55 %. Basal inferior LV wall motio n is hypokinetic. The right ventricle is normal in size. The left atrial size is normal. The right atrial size is normal. Lumason used The aortic valve is trileaflet and appears structurally normal. The mitral valve is normal. There is trace mitral regurgitation. The tricuspid valve appears structurally normal. Trace tricuspid regurgitation present. Right byron tricular systolic pressure is normal at < 35 mmHg. There is no pulmonic regurgitation present. The aortic root size is normal. IVC Not well visulized. There is no pericardial effusion. CONCLUSIONS -------- 1. The left ventricular size is normal. 2. Left ventricular wall thickness is normal. 3. Overall left ventricular systolic function is low-normal with, an EF between 50 - 55 %. 4. Basal inferior LV wall motion is hypokinetic. 5. There is trace mitral regurgitation. 6. Trace tricuspid regurgitation present. 7. There is no pericardial effusion. GRAPPLER: Leah Suarez [facility]
[2021-03-24 18:01] LABS: Chol/HDL Ratio 3.18
[2021-03-24] MEDS ORDERED: METOPROLOL SUCCINATE (ER) 25 MG TAB.ER.24H PO SCH (21:00)
[2021-03-24] MEDS ORDERED: ATORVASTATIN 40 MG TAB PO SCH (21:00)
[2021-03-24] MEDS: MELATONIN 5 MG TABLET PO SCH (21:14)
[2021-03-24] MEDS: lisinopriL 10 MG TAB PO SCH (21:14)
[2021-03-24] MEDS: METOPROLOL SUCCINATE (ER) 25 MG TAB.ER.24H PO SCH (21:15)
--- NOTE | 2021-03-25 08:08 | P.PN ---
Subjective Progress Note Date: 03/25/21 This is a 77-year-old patient of Dr. Mccrary with a past medical history significant for coronary bypass surgery with multiple coronary stents, coronary artery disease, hyperlipidemia, hypertension, ischemic cardiomyopathy with a EF of 40-45%, chronic kidney disease stage III and [place]. Patient is a former smoker. He is not currently on any blood thinners. He was at home when he started to have chest pain for 2-3 hours in duration. Patient called EMS where he was found to have ST elevation in leads 23 aVF with reciprocal changes to 1 and aVL. Patient states that the pain was radiating across his chest and down both arms. Patient denied any dyspnea. Denies any nausea or vomiting. Denies headache lightheadedness or weakness. Patient was having a pressure sensation unrelenting for multiple hours prior to calling EMS. He did take an aspirin at home and more aspirin with EMS and 3 nitros. Patient had relief after the nitros. He was taken to the cardiac Business Editor where a PTCA was preformed to the SVG to the left circumflex. Due to patient's anatomy was unable to place a stent. 03/25: Patient is found sitting up in a chair in the ICU. He will be transitioned to selective care today. Patient states no chest pain difficulty breathing or palpitations. He is infiltrate in the room without any difficulties. Patient states that he is intolerant of statins. He was taking Crestor once a week. Patient states that after 2 weeks of taking stand he developed severe muscle weakness and pain. We will add pravastatin 80 mg once a week and he will then transition back to his Crestor once a week once discharged. Patient remained afebrile, pulse rate 93, respirations 23, blood pressure 150/85 pulse ox a 95 7% on room air. Due to the low heart rate at times his atenolol was decreased to 12.5 mg. Review Of Systems: Constitutional: No fever, no chills, no night sweats. No weight change. No weakness, fatigue or lethargy. No daytime sleepiness. EENT: No headache. No blurred vision or double vision, no loss of vision. No loss of Hearing, no ringing in the ears, no dizziness. No nasal drainage or congestion. No epistaxis. No sore throat. Lungs: No shortness of breath, cough, no sputum production. No wheezing. Cardiovascular: No chest pain, no lower extremity edema. No palpitations. No paroxysmal nocturnal dyspnea. No orthopnea. No lightheadedness or dizziness. No syncopal episodes. Abdominal: no abdominal discomfort. No nausea, vomiting. no diarrhea. No constipation. No bloody or tarry stools. no loss of appetite. Genitourinary: No dysuria, increased frequency, urgency. No urinary retention. Musculoskeletal: No myalgias. No muscle weakness, no gait dysfunction, no frequent falls. No back pain. No neck pain. Integumentary: No wounds, no lesions. No rash or pruritus. No unusual bruising. No change in hair or nails. Neurologic: No aphasia. No facial droop. No change in mentation. No head injury. No headache. No paralysis. No paresthesia. Psychiatric: No depression. No anxiety. No mood swings. Endocrine: No abnormal blood sugars. No weight change. No excessive sweating or thirst. Physical examination General Appearance: Alert, cooperative, no distress, appears stated age. Neck HEENT: Supple, no lymphadenopathy, no thyroid enlargement, no carotid bruits. Lungs: Clear to auscultation without crackles or wheezes no rhonchi, no deformity. Chest Wall: Chest wall normal expansion with deep inspiration no tenderness and no deformity was found on exam, no costochondral pain or discomfort. Heart: Regular rate and rhythm, S1, S2 normal, no murmur, rub or gallop. Back: Symmetric, no curvature, ROM normal, no CVA tenderness. Abdomen: Soft, non-tender, no rebound or rigidity, no hepatosplenomegaly. Extremities: Extremities normal, atraumatic, no cyanosis or edema. Pulses: 2+ and symmetric. Skin: Skin color, texture, tugor normal, no rashes or lesions. Neurologic: Alert oriented x3 cranial nerves II through XII intact, no motor deficit, no abnormal balance or gait Assessment and plan 1. Chest pain with acute inferior ST elevation myocardial infarction status post PCI of SVG to the left circumflex. Cardiology consult appreciated, continue Plavix. 2. Ischemic cardiomyopathy with severe triple-vessel disease status post CABG 2001 as noted above 3. Hypertension. Continue lisinopril 10 mg by mouth at bedtime metoprolol 12.5 mg by mouth at bedtime 4. Hyperlipidemia. Change to pravastatin and 80 mg weekly upon discharge patient will return to [facility] weekly, 5. Chronic kidney disease. Monitor kidney function, continue hydration 6. Constipation continue Colace 100 mg by mouth daily as needed 7. Insomnia continue melatonin 5 mg by mouth at bedtime 8. GI prophylaxis. Protonix 9. DVT prophylaxis. Plavix, Aggrastat at this time Discharge plan: More than likely home Impression and plan of care have been directed as dictated by the signing physician. Lisa Zheng nurse practitioner acting as scribe for signing physician. Objective - Vital Signs Vital signs: Vital Signs Temp 98.5 F 03/25/21 08:00 Pulse 93 03/25/21 08:00 Resp 23 03/25/21 08:00 BP 150/85 03/25/21 08:00 Pulse Ox 97 03/25/21 07:00 Intake & Output 03/24/21 03/25/21 03/25/21 18:59 06:59 18:59 Intake Total 1594.80 1150 75 Output Total 1150 1360 350 Balance 444.80 -210 -275 Intake: IV 794.80 900 75 Sodium Chloride 0.9% 1, 750 900 75 000 ml @ 75 mls/hr IV . [id number] [facility] Rx#:[id number] Tirofiban 12.5MG-250Ml Ns 44.80 250 ml @ 0.075 MCG/KG/ MIN 7.452 mls/hr IV .Q24H [facility] Rx#:[id number] Oral 800 250 Output: Urine 1150 1360 350 Other: Voiding Method Urinal # Voids 1 1 # Bowel Movements 1 ABP, PAP, CO, CI - Last Documented Arterial Blood Pressure 118/48 - Labs CBC & Chem 7: 03/24/21 11:08 03/24/21 11:08 Labs: Abnormal Lab Results - Last 24 Hours (Table) 03/24/21 03/24/21 Range/Units 11:08 11:08 RBC 4.02 L (4.30-5.90) m/uL MCV 100.1 H (80.0-100.0) fL Sodium 136 L (137-145) mmol/L Chloride 108 H (98-107) mmol/L Carbon Dioxide 19 L (22-30) mmol/L Glucose 155 H (74-99) mg/dL
[2021-03-25] MEDS: MULTIVITAMINS, THERA 1 EACH TAB PO SCH (08:21)
[2021-03-25] MEDS: CLOPIDOGREL 75 MG TAB PO SCH (08:21)
[2021-03-25] MEDS: ASCORBIC ACID 500 MG TAB PO SCH (08:22)
[2021-03-25] MEDS: PANTOPRAZOLE 40 MG TABLET PO SCH (08:22)
[2021-03-25 11:22] LABS: Hemoglobin A1C 5.8 % (4.0-6.0)
--- NOTE | 2021-03-25 12:35 | P.PN ---
Subjective Progress Note Date: 03/25/21 This patient with history of ischemic heart disease with previous bypass surgery and also previous stent placement of the vein graft to circumflex, present to the hospital with complaints of chest pain and EKG evidence of inferior wall myocardial infarction. Patient was taken to mill laborer and had catheterization and also angioplasty of the vein graft to circumflex by Dr. Lowe. Apparently stent could not be placed. Patient did well on this seemed to feeling good today. Denies any chest pain or shortness of breath. The right radial puncture site and also the right femoral site appears to be healing well without any hematoma. Patient denies any chest pain or shortness of breath. His echo Cardigan showed almost preserved LV function with mild hypokinesis of the inferior wall. Patient is maintaining sinus rhythm. We'll continue current medical therapy and increase activity. May transfer to telemetry unit. Within next 24 hours. Possible discharge within next 24-48 hours 06/24/2021: Patient remained stable overnight. Could not sleep very well. Normally, patient takes Xanax for sleep. A she we will try to take it tonight. No complex of chest pain, shortness of breath, dizziness or syncope. Heart rate is in the 60s and 70s. No Sigmund bradyarrhythmias or any arrhythmias. Lungs are clear. Heart is regular. Patient will be transferred to telemetry unit. He will continue current medical therapy. He will report on pravastatin 80 mg once a week and will change to Crestor once a week later on. He has been taking injectable cholesterol medication. Possible discharge in the morning Objective - Vital Signs Vital signs: Vital Signs Temp 98.2 F 03/25/21 12:00 Pulse 66 03/25/21 12:00 Resp 24 03/25/21 12:00 BP 145/79 03/25/21 12:00 Pulse Ox 99 03/25/21 12:00 Intake & Output 03/24/21 03/25/21 03/25/21 18:59 06:59 18:59 Intake Total 1594.80 1150 400 Output Total 1150 1360 600 Balance 444.80 -210 -200 Intake: IV 794.80 900 150 Sodium Chloride 0.9% 1, 750 900 150 000 ml @ 75 mls/hr IV . [id number] [facility] Rx#:[id number] Tirofiban 12.5MG-250Ml Ns 44.80 250 ml @ 0.075 MCG/KG/ MIN 7.452 mls/hr IV .Q24H [facility] Rx#:[id number] Oral 800 250 250 Output: Urine 1150 1360 600 Other: Voiding Method Urinal Urinal # Voids 1 1 1 # Bowel Movements 1 1 ABP, PAP, CO, CI - Last Documented Arterial Blood Pressure 118/48 - Exam GENERAL EXAM: Patient is alert and oriented and doesn't appear to be in any acute distress HEENT: Normocephalic. Normal reaction of pupils, equal size, normal range of extraocular motion. No erythema or exudates in the throat. NECK: No masses, no nuchal rigidity. CHEST: No chest wall deformity. LUNGS: Equal air entry with no crackles or wheeze. HEART: S1 and S2 normal with no audible mumurs or gallops. Regular rhythm, femorals equal on both sides.. ABDOMEN: No hepatosplenomegaly, normal bowel sounds, no guarding or rigidity. SKIN: No rashes CENTRAL NERVOUS SYSTEM: No focal deficits. EXTREMITIES: No cyanosis, clubbing or edema. - Labs CBC & Chem 7: 03/24/21 11:08 03/24/21 11:08 Assessment and Plan (1) CAD (coronary artery disease) Current Visit: Yes Status: Acute Code(s): I25.10 - ATHSCL HEART DISEASE OF [place] CORONARY ARTERY W/O ANG PCTRS SNOMED Code(s): 833461118 (2) ST elevation myocardial infarction (STEMI) Current Visit: Yes Status: Acute Code(s): I21.3 - ST ELEVATION (STEMI) MYOCARDIAL INFARCTION OF [facility] SITE SNOMED Code(s): 97682478 (3) HTN (hypertension) Current Visit: No Status: Acute Code(s): I10 - ESSENTIAL (PRIMARY) HYPERTE NSION SNOMED Code(s): 13484234 (4) Hx of CABG Current Visit: No Status: Acute Code(s): Z95.1 - PRESENCE OF AORTOCORONARY BYPASS GRAFT SNOMED Code(s): 884342746 (5) Hyperlipemia Current Visit: No Status: Acute Code(s): E78.5 - HYPERLIPIDEMIA, UNSPECIFIED SNOMED Code(s): 80079433 Plan: Patient is critically stable. Being transferred to telemetry unit. Increase activity as tolerated. Discharge home in a.m.
[2021-03-25] MEDS ORDERED: ACETAMINOPHEN TAB 325 MG TAB PO PRN (16:02)
[2021-03-25] MEDS ORDERED: PRAVASTATIN SODIUM 80 MG TAB PO SCH (21:00)
[2021-03-25] MEDS: METOPROLOL SUCCINATE (ER) 25 MG TAB.ER.24H PO SCH (21:08)
[2021-03-25] MEDS: lisinopriL 10 MG TAB PO SCH (21:11)
[2021-03-25] MEDS: MELATONIN 5 MG TABLET PO SCH (21:11)
[2021-03-26] MEDS: PANTOPRAZOLE 40 MG TABLET PO SCH (06:23)
[2021-03-26] MEDS: MULTIVITAMINS, THERA 1 EACH TAB PO SCH (08:45)
[2021-03-26] MEDS: ASCORBIC ACID 500 MG TAB PO SCH (08:45)
[2021-03-26] MEDS: CLOPIDOGREL 75 MG TAB PO SCH (08:45)
[2021-03-26] MEDS ORDERED: ASPIRIN 81 MG PO SCH (09:00)
[2021-03-26] MEDS ORDERED: ATORVASTATIN 20 MG TAB PO SCH (09:00)
[2021-03-26] MEDS ORDERED: METOPROLOL TARTRATE 12.5 MG TAB PO SCH (09:00)
--- NOTE | 2021-03-26 10:46 | P.PN ---
Subjective Progress Note Date: 03/26/21 HISTORY OF PRESENT ILLNESS: This is a 68-year-old gentleman who is frail and cachectic with history of colon cancer, hypertension, GI reflux disease and also marijuana use who was admitted to the hospital with abdominal pain. Computed tomography scan showed possible mass consistent with neoplasm of chronic origin with a new wall perforation and free air. He was taken to the OR for expiratory laparotomy. He underwent drainage of the right side abdominal abscess, resection of the cecal tumor, diverticula loop ileostomy and excision of abdominal wall nodule. 2 SASHA drains were placed on the right side, loop ileostomy in the left midabdomen. Patient had a cardiac arrhythmia consistent with atrial fibrillation. Patient was on IV Cardizem. Currently patient seemed to be in sinus rhythm with APCs are multifocal atrial rhythm. Recent echo Cardigan showed an ejection fraction of 50-50%. This is currently intubated. Chest x-ray showed no acute pulmonary process. Patient also has NG tube. We'll continue his current medical therapy. We'll make consider starting him on small dose of beta miguel as needed 03/25/2021 This is a 68-year-old gentleman who was diagnosed to have colon cancer and has undergone surgery. Details are available from H&P. Patient is still intubated. The belt knife feeder wants to give a trial of extubation. Patient is in atrial fibrillation. He is a rate is controlled with IV Cardizem. Patient is not on anticoagulation. Needs to go on anticoagulation when cleared by Dr. Mcclelland. Patient is also on pressors and IV fluids but chest x-ray shows some infiltrates and also atelectatic changes. Heart rate is controlled currently. We'll c ontinue current cardiac medications. 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 Patient has been extubated. He is on 4L nasal cannula. Patient remains NPO. He has a NG tube to LIS. Telemetry reveals atrial fibrillation with mildly uncontrolled ventricular rates. He remains on a cardizem drip at 10mg/hr. echocardiogram completed in December 2020 revealed ejection fraction 50-55%, mild mitral regurgitation, and mild tricuspid regurgitation. PHYSICAL EXAM: VITAL SIGNS: Reviewed. GENERAL: Well-developed in no acute distress. NECK: Supple. No JVD or thyromegaly LUNGS: Respirations even and unlabored. Lungs essentially clear to auscultation bilaterally. HEART: Tachycardic. Irregular rate and rhythm. S1 and S2 heard. Systolic murmur noted. EXTREMITIES: No clubbing or cyanosis. Peripheral pulses intact. 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, status post exploratory laparotomy, drainage right-sided abdominal abscess, biopsy of cecal tumor, diverting loop ileostomy, and excision of abdominal wall nodule New-onset persistent atrial fibrillation with RVR Acute hypoxic respiratory failure requiring intubation, X sedated 03/25/2021 Acute on chronic kidney disease Hypertension GERD PLAN: Obtain 12 lead EKG Continue Cardizem infusion at 10mg/hr Continue telemetry monitoring Will initiate beta miguel when patient is able to tolerate PO medications Will consider anticoagulation when cleared by general surgery Further recommendations pending patient course Nurse practitioner note has been reviewed by physician. Signing provider agrees with the documented findings, assessment, and plan of care. Objective - Vital Signs Vital signs: Vital Signs Temp 98.6 F 03/26/21 08:00 Pulse 76 03/26/21 08:00 Resp 16 03/26/21 08:00 BP 127/99 03/26/21 08:00 Pulse Ox 100 03/26/21 08:00 Intake & Output 03/25/21 03/26/21 03/26/21 18:59 06:59 18:59 Intake Total 400 350 Output Total 850 0 Balance -450 350 Weight 82.6 kg Intake: IV 150 Sodium Chloride 0.9% 1, 150 000 ml @ 75 mls/hr IV . [id number] [facility] Rx#:[id number] Oral 250 350 Output: Urine 850 0 Other: Voiding Method Urinal Urinal # Voids 1 1 # Bowel Movements 1 ABP, PAP, CO, CI - Last Documented Arterial Blood Pressure 118/48 - Labs CBC & Chem 7: 03/24/21 11:08 03/24/21 11:08
--- NOTE | 2021-03-26 12:12 | PN ---
PROGRESS NOTE This gentleman presented with acute inferior ST-elevation [place] on Friday, underwent PTCA of vein graft to the circumflex. Technically it was a difficult procedure. He seems to be doing better today. No further chest pain. Ejection fraction is 50%. No clinical evidence of heart failure. Vitals are stable. I am asking that we switch his metoprolol from succinate to 25 mg metoprolol tartrate half a tablet b.i.d. Vitals are stable. There is no JVD. S1-S2 heard normally. Short systolic murmur is audible at the base. Second heart sound is preserved. Lungs reveal decent air entry. Abdomen is soft. Lower extremities reveal palpable pulses. No edema. Central nervous system is normal. IMPRESSION: 1. Coronary artery disease with recent ST-elevation myocardial infarction, status post angioplasty of vein graft to circumflex, doing well. 2. Hypertension. 3. Hyperlipidemia. RECOMMENDATIONS: I am recommending that he can be discharged later today after he is up and about and ambulatory. Upon discharge, he will see Dr. Gonzalez in one week. Same medical regimen, including beta blockers. Discharge instructions regarding activity, diet and medications were given and he will see Dr. Gonzalez in one week. MMODL / IJN: [id number] /
--- NOTE | 2021-03-26 12:47 | P.DS ---
Providers Date of admission: 03/23/21 15:39 Expected date of discharge: 03/26/21 Attending physician: David Aden Consults: 03/23/21 15:28 Consult Physician Stat Consulting Provider: [facility] Consult Reason/Comments: STEMI ACTIVATION COMPLETE Do you want consulting provider notified?: Yes Primary care physician: David Markie [facility] Course: This is a 77-year-old patient of Dr. Mccrary with a past medical history significant for coronary bypass surgery with multiple coronary stents, coronary artery disease, hyperlipidemia, hypertension, ischemic cardiomyopathy with a EF of 40-45%, chronic kidney disease stage III and [place]. Patient is a former smoker. He is not currently on any blood thinners. He was at home when he started to have chest pain for 2-3 hours in duration. Patient called EMS where he was found to have ST elevation in leads 23 aVF with reciprocal changes to 1 and aVL. Patient states that the pain was radiating across his chest and down both arms. Patient denied any dyspnea. Denies any nausea or vomiting. Denies headache lightheadedness or weakness. Patient was having a pressure sensation unrelenting for multiple hours prior to calling EMS. He did take an aspirin at home and more aspirin with EMS and 3 nitros. Patient had relief after the nitros. He was taken to the cardiac [facility] [employer] where a PTCA was preformed to the SVG to the left circumflex. Due to patient's anatomy was unable to place a stent. 03/25: Patient is found sitting up in a chair in the ICU. He will be transitioned to selective care today. Patient states no chest pain difficulty breathing or palpitations. He is infiltrate in the room without any difficulties. Patient states that he is intolerant of statins. He was taking Crestor once a week. Patient states that after 2 weeks of taking stand he developed severe muscle weakness and pain. We will add pravastatin 80 mg once a week and he will then transition back to his Crestor once a week once di scharged. Patient remained afebrile, pulse rate 93, respirations 23, blood pressure 150/85 pulse ox a 95 7% on room air. Due to the low heart rate at times his atenolol was decreased to 12.5 mg. 03/26, patient's doing well, no chest pain no shortness of breath, patient would be anticipated for discharge today, and he does well at the end of the day, if he walks around without any angina. Patient hasn't not had any chest pain while here, heart rate is controlled between 50s to 80s, without any new symptoms. Creatinine on discharge was 1.0, glucose is 155, hemoglobin of 14.0. No symptoms for CHF, or edema, bowel sounds normal, without melena and hematochezia, firm, stools, stool softener laxative was advised. Review Of Systems: Constitutional: No fever, no chills, no night sweats. No weight change. No weakness, fatigue or lethargy. No daytime sleepiness. EENT: No headache. No blurred vision or double vision, no loss of vision. No loss of Hearing, no ringing in the ears, no dizziness. No nasal drainage or congestion. No epistaxis. No sore throat. Lungs: No shortness of breath, cough, no sputum production. No wheezing. Cardiovascular: No chest pain, no lower extremity edema. No palpitations. No paroxysmal nocturnal dyspnea. No orthopnea. No lightheadedness or dizziness. No syncopal episodes. Abdominal: no abdominal discomfort. No nausea, vomiting. no diarrhea. No constipation. No bloody or tarry stools. no loss of appetite. Genitourinary: No dysuria, increased frequency, urgency. No urinary retention. Musculoskeletal: No myalgias. No muscle weakness, no gait dysfunction, no frequent falls. No back pain. No neck pain. Integumentary: No wounds, no lesions. No rash or pruritus. No unusual bruising. No change in hair or nails. Neurologic: No aphasia. No facial droop. No change in mentation. No head injury. No headache. No paralysis. No paresthesia. Psychiatric: No depression. No anxiety. No mood swings. Endocrine: No abnormal blood sugars. No weight change. No excessive sweating or thirst. FINAL DIAGNOSIS 1. Chest pain with acute inferior ST elevation myocardial infarction status post PCI of SVG to the left circumflex on 03/23/2021 Dr. Gonzalez. Cardiology consult appreciated, continue Plavix. Statins aspirin Kingsley inhibition. Follow up with Dr. Gonzalez, in less than one week 2. Ischemic cardiomyopathy with severe triple-vessel disease status post CABG 2001 as noted above 3. Hypertension. Continue lisinopril 10 mg by mouth at bedtime metoprolol 12.5 mg by mouth at bedtime 4. Hyperlipidemia. Change to pravastatin and 80 mg weekly upon discharge patient will return to Crestor weekly, 5. Chronic kidney disease. Monitor kidney function, continue hydration 6. Constipation continue Colace 100 mg by mouth daily as needed 7. Insomnia continue melatonin 5 mg by mouth at bedtime 8. GI prophylaxis. Protonix 9. DVT prophylaxis. Plavix, Aggrastat at this time Discharge plan: Home today Discharge Medication List Ascorbic Acid [Vitamin C] 500 mg PO DAILY 03/23/21 [History] Aspirin EC [Ecotrin Low Dose] 81 mg PO HS 03/23/21 [History] Multivitamins, Thera [Multivitamin (formulary)] 1 tab PO DAILY 03/23/21 [History] lisinopriL [Zestril] 10 mg PO HS 03/23/21 [History] Clopidogrel [Plavix] 75 mg PO DAILY #90 tab 03/26/21 [Rx] Docusate [Colace] 100 mg PO DAILY PRN #30 cap 03/26/21 [Rx] Melatonin 5 mg PO HS PRN #30 tab 03/26/21 [Rx] Metoprolol Tartrate [Lopressor] 12.5 mg PO BID #180 tab 03/26/21 [Rx] Nitroglycerin Sl Tabs [Nitrostat] 0.4 mg SUBLINGUAL Q5M PRN #25 tab 03/26/21 [Rx] Rosuvastatin Calcium [Crestor] 10 mg PO DAILY #90 tab 03/26/21 [Rx] Patient Condition at Discharge: Stable Plan - Discharge Summary Discharge Rx Participant: Yes New Discharge Prescriptions: New Rosuvastatin Calcium [Crestor] 10 mg PO DAILY #90 tab Docusate [Colace] 100 mg PO DAILY PRN #30 cap PRN Reason: Constipation Metoprolol Tartrate [Lopressor] 12.5 mg PO BID #180 tab Clopidogrel [Plavix] 75 mg PO DAILY #90 tab Continue lisinopriL [Zestril] 10 mg PO HS Multivitamins, Thera [Multivitamin (formulary)] 1 tab PO DAILY Aspirin EC [Ecotrin Low Dose] 81 mg PO HS Ascorbic Acid [Vitamin C] 500 mg PO DAILY Nitroglycerin Sl Tabs [Nitrostat] 0.4 mg SUBLINGUAL Q5M PRN #25 tab PRN Reason: Chest Pain Changed Melatonin 5 mg PO HS PRN #30 tab PRN Reason: insommnia Discontinued ALPRAZolam [Xanax] 0.25 mg PO HS PRN PRN Reason: Anxiety Rosuvastatin [Crestor] 10 mg PO FR Metoprolol Succinate [Toprol XL] 25 mg PO HS Discharge Medication List Ascorbic Acid [Vitamin C] 500 mg PO DAILY 03/23/21 [History] Aspirin EC [Ecotrin Low Dose] 81 mg PO HS 03/23/21 [History] Multivitamins, Thera [Multivitamin (formulary)] 1 tab PO DAILY 03/23/21 [History] lisinopriL [Zestril] 10 mg PO HS 03/23/21 [History] Clopidogrel [Plavix] 75 mg PO DAILY #90 tab 03/26/21 [Rx] Docusate [Colace] 100 mg PO DAILY PRN #30 cap 03/26/21 [Rx] Melatonin 5 mg PO HS PRN #30 tab 03/26/21 [Rx] Metoprolol Tartrate [Lopressor] 12.5 mg PO BID #180 tab 03/26/21 [Rx] Nitroglycerin Sl Tabs [Nitrostat] 0.4 mg SUBLINGUAL Q5M PRN #25 tab 03/26/21 [Rx] Rosuvastatin Calcium [Crestor] 10 mg PO DAILY #90 tab 03/26/21 [Rx] Follow up Appointment(s)/Referral(s): Gregg Gonzalez MD [STAFF PHYSICIAN] - 1 Week David Aden MD [Primary Care Provider] - 1-2 days Discharge Disposition: HOME SELF-CARE
[2021-03-26 17:48] VITALS: BP 145/81; PULSE 73; RESP 18; TEMP 98.9
== END 2021-03-26 18:34 | disposition home or self-care (01) | DRG 247 ==
LOC: EC 15:21 → 2SICU 15:39
PROVIDERS: ADMIT Internal Medicine Geriatric Medicine; ATTEND Internal Medicine Geriatric Medicine
PROC: B2131ZZ Fluoroscopy of Multiple Coronary Artery Bypass Grafts using Low Osmolar Contrast (ICD-10-PCS; 2021-03-23)
PROC: B2111ZZ Fluoroscopy of Multiple Coronary Arteries using Low Osmolar Contrast (ICD-10-PCS; 2021-03-23)
PROC: B2181ZZ Fluoroscopy of Left Internal Mammary Bypass Graft using Low Osmolar Contrast (ICD-10-PCS; 2021-03-23)
PROC: B2151ZZ Fluoroscopy of Left Heart using Low Osmolar Contrast (ICD-10-PCS; 2021-03-23)
PROC: B41F1ZZ Fluoroscopy of Right Lower Extremity Arteries using Low Osmolar Contrast (ICD-10-PCS; 2021-03-23)
PROC: 0270346 Dilation of Coronary Artery, One Artery, Bifurcation, with Drug-eluting Intraluminal Device, Percutaneous Approach (ICD-10-PCS; principal; 2021-03-23 15:34)
PROC: 4A023N7 Measurement of Cardiac Sampling and Pressure, Left Heart, Percutaneous Approach (ICD-10-PCS; 2021-03-23 15:34)
DX: I21.19 ST elevation (STEMI) myocardial infarction involving other coronary artery of inferior wall (principal); E87.1 Hypo-osmolality and hyponatremia; I42.8 Other cardiomyopathies; T82.868A Thrombosis due to vascular prosthetic devices, implants and grafts, initial encounter; I25.810 Atherosclerosis of coronary artery bypass graft(s) without angina pectoris; E78.5 Hyperlipidemia, unspecified; N18.30 Chronic kidney disease, stage 3 unspecified; G47.00 Insomnia, unspecified; I12.9 Hypertensive chronic kidney disease with stage 1 through stage 4 chronic kidney disease, or unspecified chronic kidney disease; K59.00 Constipation, unspecified; M62.81 Muscle weakness (generalized); I25.5 Ischemic cardiomyopathy; I25.2 Old myocardial infarction; Z20.822 Contact with and (suspected) exposure to COVID-19; Y71.2 Prosthetic and other implants, materials and accessory cardiovascular devices associated with adverse incidents; Z79.02 Long term (current) use of antithrombotics/antiplatelets; Z79.899 Other long term (current) drug therapy; Z87.891 Personal history of nicotine dependence; Z95.1 Presence of aortocoronary bypass graft; Z95.5 Presence of coronary angioplasty implant and graft; Z88.8 Allergy status to other drugs, medicaments and biological substances
CPT/HCPCS: 36415; 71045; 80048; 80053; 80061; 83036; 84484; 85025; 85610; 85730; 92920; 93005; 93306; 93455; 99291